=== PATIENT | male | born 1995 | race Caucasian/White ===

== ENCOUNTER 2021-07-21 11:20 | Emergency (ER) | payer OTHER ==
[~2021-07-21] VITALS: Ht 175.3 cm; Wt 98.7 kg
[2021-07-21] MEDS ORDERED: MECLIZINE 25 MG TABLET PO ONE (14:00)
[2021-07-21 14:40] LABS: BASO % 0.6 % (0.0-1.0); EOS # 0.1 10^3/uL (0.0-0.5); EOS % 1.9 % (0.0-3.0); HEMATOCRIT 40.4 % (42.0-52.0); HEMOGLOBIN 14.6 g/dl (13.5-17.5); LYMPH # 1.5 10^3/uL (1.5-5.0); MEAN CORPUSCULAR HEMOGLOBIN 32.5 pg (27.0-33.0); MEAN CORPUSCULAR HGB CONC 36.1 g/dl (32.0-36.5); MONO # 0.3 10^3/uL (0.0-0.8); MONO % 5.9 % (2.0-8.0); NEUTROPHILS # 3.4 10^3/uL (1.5-8.5); NEUTROPHILS % 63.2 % (36.0-66.0); PLATELET COUNT, AUTOMATED 184 10^3/uL (150-450); RED BLOOD COUNT 4.49 10^6/uL (4.30-6.10); WHITE BLOOD COUNT 5.3 10^3/uL (4.0-10.0)
--- NOTE | 2021-07-21 14:53 | REP ---
INDICATION: dizziness frequent. COMPARISON: None. TECHNIQUE: Helical scanning is acquired. 5 mm axial images were reformatted. Coronal MPR images were generated. FINDINGS: Bone window settings demonstrate an intact bony calvarium. There is no evidence of skull fracture or incidental bony calvarial lesion. The visualized paranasal sinuses appear clear. No intraorbital abnormality is seen. On soft tissue window setting images; the lateral, third, and fourth ventricles are normal in size and position. Loving-white differentiation pattern is normal above and below the tentorium. There are is no evidence of intracranial hemorrhage. No mass, edema, infarction, or midline shift is seen. No extra-axial fluid collection is appreciated. IMPRESSION: Negative noncontrast head CT. <Electronically signed by Dallas Irene > 07/21/21 [id number]
[2021-07-21 14:59] LABS: ERYTHROCYTE SEDIMENTATION RATE 4 mm/hr (0-15)
[2021-07-21 15:14] LABS: FREE THYROXINE INDEX 2.9 % (1.4-3.8); THYROID STIMULATING HORMONE 1.18 uIU/ML (0.358-3.740); THYROXINE (T4) 8.2 UG/DL (4.5-12.0)
[2021-07-21] MEDS ORDERED: diazePAM 10MG/2ML SYRINGE (J3360 PER 5MG) IV ONE (15:20)
[2021-07-21] MEDS ORDERED: diazePAM 5MG TABLET PO ONE (16:15)
[2021-07-21] MEDS ORDERED: MECL1TAB31 PO (16:15)
[2021-07-21 16:37] VITALS: BP 123/73
--- NOTE | 2021-07-22 23:57 | ECGEPIP ---
[facility] - ED Test Date: 2021-07-21 Pat Name: GEOVANNY BROWN Department: Room: - Gender: Male Museum Attendant: VERONICA : 1995 Requested By: YAMILA Damon PA-C Order Number: [id number] Reading MD: Paul Jasmine Measurements Intervals [place] Rate: 57 P: 34 NE: 152 QRS: 46 QRSD: 106 T: 37 QT: 434 QTc: 422 Interpretive Statements Sinus bradycardia with sinus arrhythmia NO PRIORS FOR COMPARISON Electronically Signed on 07-22-2021 23:57:16 EDT by Paul Jasmine
== END 2021-07-21 16:56 | disposition home or self-care (01) ==
LOC: M ED 11:20
DX: R42 Dizziness and giddiness (principal)

== ENCOUNTER 2022-05-25 13:16 | Emergency (ER) | payer OTHER ==
[~2022-05-25] VITALS: Ht 172.7 cm; Wt 102.3 kg
[~2022-05-25 13:16] MED LIST: MECL1TAB31 PO
[2022-05-25] MEDS ORDERED: ONDA-83 PO (13:38)
[2022-05-25] MEDS ORDERED: diazePAM 10 MG TAB PO ONE (17:00)
[2022-05-25] MEDS ORDERED: NS 1,000 ML IV ONE (17:00)
[2022-05-25] MEDS ORDERED: MECLIZINE 25 MG TABLET PO ONE (17:00)
[2022-05-25 17:24] LABS: BASO % 0.5 % (0.0-1.0); EOS # 0.3 10^3/uL (0.0-0.5); EOS % 3.5 % (0.0-3.0); HEMATOCRIT 43.7 % (42.0-52.0); HEMOGLOBIN 15.3 g/dl (13.5-17.5); LYMPH # 1.7 10^3/uL (1.5-5.0); LYMPH % 20.4 % (24.0-44.0); MEAN CORPUSCULAR HEMOGLOBIN 31.5 pg (27.0-33.0); MEAN CORPUSCULAR VOLUME 89.9 fl (80.0-96.0); MONO # 0.6 10^3/uL (0.0-0.8); MONO % 6.7 % (2.0-8.0); NEUTROPHILS # 5.8 10^3/uL (1.5-8.5); NEUTROPHILS % 68.4 % (36.0-66.0); PLATELET COUNT, AUTOMATED 204 10^3/uL (150-450); RED BLOOD COUNT 4.86 10^6/uL (4.30-6.10); WHITE BLOOD COUNT 8.5 10^3/uL (4.0-10.0)
[2022-05-25 18:34] LABS: BLOOD UREA NITROGEN 12 MG/DL (7-18); CALCIUM LEVEL 9.2 MG/DL (8.5-10.1); CARBON DIOXIDE LEVEL 27 MEQ/L (21-32); CHLORIDE LEVEL 109 MEQ/L (98-107); CREATININE FOR GFR 0.92 MG/DL (0.70-1.30); GLOMERULAR FILTRATION RATE > 60.0 (>60); GLUCOSE, FASTING 103 MG/DL (70-100); MAGNESIUM LEVEL 2.1 MG/DL (1.8-2.4); POTASSIUM SERUM 4.5 MEQ/L (3.5-5.1); SODIUM LEVEL 141 MEQ/L (136-145)
[2022-05-25 19:28] VITALS: BP 126/81
== END 2022-05-25 19:30 | disposition home or self-care (01) ==
LOC: M ED 13:16
DX: R42 Dizziness and giddiness (principal); E78.5 Hyperlipidemia, unspecified; M19.90 Unspecified osteoarthritis, unspecified site

== ENCOUNTER 2022-08-22 13:21 | Emergency (ER) | payer OTHER ==
[~2022-08-22] VITALS: Ht 175.3 cm; Wt 123.5 kg
[~2022-08-22 13:21] MED LIST changes: +ONDA-83 PO
[2022-08-22 18:37] VITALS: BP 141/84
== END 2022-08-22 20:02 | disposition left against medical advice (07) ==
LOC: M ED 13:21
DX: R42 Dizziness and giddiness (principal); Z53.20 Procedure and treatment not carried out because of patient's decision for unspecified reasons; R11.2 Nausea with vomiting, unspecified

== ENCOUNTER 2023-02-13 06:26 | Emergency (ER) | payer OTHER ==
[~2023-02-13] VITALS: Ht 177.8 cm; Wt 121.9 kg
[2023-02-13] MEDS ORDERED: NORT10CA2 (06:34)
[2023-02-13] MEDS ORDERED: METOCLOPRAMIDE 10MG TAB PO ONE (07:30)
[2023-02-13] MEDS ORDERED: ALPRAZolam 0.5 MG TAB PO ONE (07:30)
[2023-02-13] MEDS ORDERED: AMOX500C PO (08:22)
[2023-02-13 08:31] VITALS: BP 147/72
== END 2023-02-13 08:53 | disposition home or self-care (01) ==
LOC: M ED 06:26
DX: H81.393 Other peripheral vertigo, bilateral (principal)